=== PATIENT | female | born 2000 | race Caucasian/White ===

== ENCOUNTER 2025-02-21 22:49 | Emergency (ER) | payer SELFPAY ==
[~2025-02-21] VITALS: Ht 170.2 cm; Wt 86.0 kg
[2025-02-21 22:51] VITALS: O2SAT 98
[2025-02-22] MEDS: SODIUM CHLORIDE 0.9% 1,000 ML IV ONE (00:17)
[2025-02-22] MEDS: LORAZEPAM 2MG/ML UD SYRINGE IV NR (00:24)
[2025-02-22] MEDS ORDERED: ONDA4TAB50 MT (00:38)
[2025-02-22 02:11] VITALS: BP 104/59; PULSE 99; RESP 18; TEMP 36.8; O2SAT 99
== END 2025-02-22 02:49 | disposition home or self-care (01) ==
LOC: ER 22:49
DX: F12.90 Cannabis use, unspecified, uncomplicated (principal); F41.0 Panic disorder [episodic paroxysmal anxiety]; F17.200 Nicotine dependence, unspecified, uncomplicated
CPT/HCPCS: 99283; 96374; 96361; J2060; J7030